=== PATIENT | male | born 1950 | race African-American/Black ===

== ENCOUNTER 2020-05-18 12:46 | Inpatient (IN) | payer OTHER ==
[2020-05-18] MEDS ORDERED: DEXAMETHASONE SOD PHOSPHATE 4 MG/1 ML VIAL IVPUSH ONE (16:19)
[2020-05-18 16:20] LABS: BASO % 0.4 % (0-2.0); EOS % 0.1 % (0-4.5); HEMATOCRIT 35.2 % (35.4-49); LYMPH % 16.7 % (8-40); MCH 33.4 pg (25.7-33.7); MEAN CELL VOLUME 98.3 fl (80-96); MEAN PLT VOLUME 8.6 fl (7.5-11.1); MONO % 3.7 % (3.8-10.2); NEUT % 79.1 % (42.8-82.8); PLATELET COUNT 305 K/MM3 (134-434); RBC 3.58 M/mm3 (4.00-5.60); RDW 12.6 % (11.9-15.9); WHITE BLOOD COUNT 8.6 K/mm3 (4.0-10.0)
[2020-05-18] MEDS ORDERED: DEXAMETHASONE SOD PHOSPHATE 10 MG/1 ML VIAL ONE (16:26)
[2020-05-18 16:35] LABS: INR 1.08 (0.83-1.09)
[2020-05-18 16:37] LABS: ACTIVATED PTT 33.7 SECONDS (25.2-36.5)
[2020-05-18 16:47] LABS: CHLORIDE 102 mmol/L (98-107); POTASSIUM 3.8 mmol/L (3.5-5.1); SODIUM 137 mmol/L (136-145)
[2020-05-18 16:49] LABS: CALCIUM 8.5 mg/dL (8.5-10.1)
[2020-05-18 16:50] LABS: ANION GAP 12 MMOL/L (8-16); BLOOD UREA NITROGEN 18.1 mg/dL (7-18); CO2 23 mmol/L (21-32); GLUCOSE,RANDOM 88 mg/dL (74-106)
[2020-05-18 16:52] LABS: BILIRUBIN,DIRECT 0.4 mg/dL (0.0-0.2)
[2020-05-18 16:54] LABS: CREATININE 1.3 mg/dL (0.55-1.3); LDH 481 U/L (87-246); SGOT/AST 42 U/L (15-37); SGPT/ALT 25 U/L (13-61); TOT PROT 7.4 g/dl (6.4-8.2)
[2020-05-18 16:56] LABS: BILIRUBIN,TOTAL 0.9 mg/dL (0.2-1)
[2020-05-18 16:58] LABS: ALK PHOS 64 U/L (45-117)
[2020-05-18 21:05] LABS: VENOUS BASE EXCESS -2.5 mmol/L (-2-2); VENOUS O2 SATURATION 86.6 % (70-80); VENOUS PCO2 36.7 mmHg (38-52); VENOUS PH 7.394 (7.310-7.410)
[2020-05-18] MEDS ORDERED: CEFTRIAXONE 1,000 MG in DEXTROSE 5%-WATER - 50 ML IVPB ONE (22:19)
[2020-05-18] MEDS ORDERED: CEFTRIAXONE 1 GM/50 ML BAG ONE (22:26)
[2020-05-18] MEDS: INSULIN SLIDING SCALE (NOVOLOG) 1 VIAL SQ SCH (22:38)
[2020-05-18] MEDS ORDERED: CEFTRIAXONE 1 GM in DEXTROSE 5%-WATER - 50 ML IVPB ONE (22:40)
[2020-05-18] MEDS ORDERED: AZITHROMYCIN IVPB 500 MG/250 ML BAG IVPB ONE ×2 (23:02→23:24)
[2020-05-19] MEDS: INSULIN SLIDING SCALE (NOVOLOG) 1 VIAL SQ SCH ×4 (06:45→22:02)
[2020-05-19] MEDS ORDERED: PT OWN MED DRAWER 7, Y5N ONE (09:11)
[2020-05-19] MEDS ORDERED: DEXTROSE 5%-WATER - 50 ML IVPB ONE (09:11)
[2020-05-19] MEDS ORDERED: cefTRIAXone SODIUM 1 GM VIAL ONE (09:11)
[2020-05-19] MEDS: ENOXAPARIN NA (PORCINE) 40 MG/0.4 ML DISP.SYRIN SQ SCH (09:35)
[2020-05-19] MEDS: ASCORBIC ACID 500 MG TABLET (FP) PO SCH ×2 (09:35→21:52)
[2020-05-19] MEDS: ZINC SULFATE 220 MG CAPSULE (FP) PO SCH (09:35)
[2020-05-19] MEDS: FUROSEMIDE 20 MG TABLET (FP) PO SCH (09:35)
[2020-05-19] MEDS: LISINOPRIL 20 MG TABLET PO SCH (09:35)
[2020-05-19] MEDS: amLODIPine BESYLATE 5 MG TABLET (FP) PO SCH (09:36)
[2020-05-19] MEDS: ASPIRIN COATED 81 MG TABLET.EC PO SCH (09:36)
[2020-05-19] MEDS: CHOLECALCIFEROL (VIT D3) 1,000 UNIT (25 MCG) TABLET PO SCH (09:36)
[2020-05-19] MEDS: CEFTRIAXONE 1 GM in DEXTROSE 5%-WATER - 50 ML IVPB SCH (09:36)
[2020-05-19 09:40] LABS: HEMOGLOBIN 12.2 GM/dL (11.7-16.9); MCH 33.1 pg (25.7-33.7); MEAN CELL VOLUME 97.4 fl (80-96); MEAN PLT VOLUME 8.4 fl (7.5-11.1); PLATELET COUNT 367 K/MM3 (134-434); RBC 3.69 M/mm3 (4.00-5.60); RDW 12.5 % (11.9-15.9); WHITE BLOOD COUNT 5.7 K/mm3 (4.0-10.0)
[2020-05-19 10:02] LABS: CHOLESTEROL 216 mg/dL (50-200); LDL CHOLESTEROL (ONLY SJRH) 139 mg/dL (5-100); TRIGLYCERIDES 149 mg/dL (0-150)
[2020-05-19 10:04] LABS: HDL CHOLESTEROL 45 mg/dL (40-60)
[2020-05-19 10:12] LABS: POTASSIUM 4.2 mmol/L (3.5-5.1)
[2020-05-19 10:14] LABS: ALBUMIN 2.9 g/dl (3.4-5.0); CALCIUM 9.3 mg/dL (8.5-10.1)
[2020-05-19 10:15] LABS: BLOOD UREA NITROGEN 17.3 mg/dL (7-18); MAGNESIUM 2.8 mg/dL (1.8-2.4)
[2020-05-19 10:17] LABS: CREATININE 1.1 mg/dL (0.55-1.3)
[2020-05-19 10:18] LABS: PHOSPHOROUS 3.4 mg/dL (2.5-4.9)
[2020-05-19] MEDS: FAMOTIDINE 10 MG TABLET PO SCH ×2 (10:18→21:52)
[2020-05-19 10:19] LABS: BILIRUBIN,TOTAL 0.7 mg/dL (0.2-1); TOT PROT 7.4 g/dl (6.4-8.2)
[2020-05-19] MEDS: AZITHROMYCIN IVPB 250 MG in DEXTROSE 5%-WATER - 250 ML IVPB SCH (11:06)
[2020-05-20] MEDS: INSULIN SLIDING SCALE (NOVOLOG) 1 VIAL SQ SCH ×4 (06:31→21:49)
[2020-05-20] MEDS ORDERED: cefTRIAXone SODIUM 1 GM VIAL ONE (09:28)
[2020-05-20] MEDS ORDERED: DEXTROSE 5%-WATER - 50 ML IVPB ONE (09:28)
[2020-05-20] MEDS: ASCORBIC ACID 500 MG TABLET (FP) PO SCH ×2 (09:29→21:44)
[2020-05-20] MEDS: CHOLECALCIFEROL (VIT D3) 1,000 UNIT (25 MCG) TABLET PO SCH (09:29)
[2020-05-20] MEDS: amLODIPine BESYLATE 5 MG TABLET (FP) PO SCH (09:29)
[2020-05-20] MEDS: FAMOTIDINE 10 MG TABLET PO SCH ×2 (09:29→21:49)
[2020-05-20] MEDS: ASPIRIN COATED 81 MG TABLET.EC PO SCH (09:29)
[2020-05-20] MEDS: ENOXAPARIN NA (PORCINE) 40 MG/0.4 ML DISP.SYRIN SQ SCH (09:29)
[2020-05-20] MEDS: LISINOPRIL 20 MG TABLET PO SCH (09:29)
[2020-05-20] MEDS: CEFTRIAXONE 1 GM in DEXTROSE 5%-WATER - 50 ML IVPB SCH (09:29)
[2020-05-20] MEDS: FUROSEMIDE 20 MG TABLET (FP) PO SCH (09:29)
[2020-05-20] MEDS: ZINC SULFATE 220 MG CAPSULE (FP) PO SCH (09:29)
[2020-05-20 10:24] LABS: BASO % 0.4 % (0-2.0); EOS % 0.2 % (0-4.5); HEMATOCRIT 34.2 % (35.4-49); HEMOGLOBIN 11.5 GM/dL (11.7-16.9); LYMPH % 15.2 % (8-40); MCH 33.3 pg (25.7-33.7); MCHC 33.7 g/dl (32.0-35.9); MEAN CELL VOLUME 98.8 fl (80-96); MEAN PLT VOLUME 8.3 fl (7.5-11.1); MONO % 2.8 % (3.8-10.2); NEUT % 81.4 % (42.8-82.8); PLATELET COUNT 464 K/MM3 (134-434); RBC 3.46 M/mm3 (4.00-5.60); RDW 12.1 % (11.9-15.9)
[2020-05-20 10:47] LABS: POTASSIUM 3.9 mmol/L (3.5-5.1)
[2020-05-20 10:56] LABS: CALCIUM 8.8 mg/dL (8.5-10.1)
[2020-05-20 10:57] LABS: ALBUMIN 2.8 g/dl (3.4-5.0); BLOOD UREA NITROGEN 22.7 mg/dL (7-18); MAGNESIUM 2.4 mg/dL (1.8-2.4)
[2020-05-20 10:58] LABS: CREATININE 1.1 mg/dL (0.55-1.3)
[2020-05-20 10:59] LABS: BILIRUBIN,TOTAL 0.7 mg/dL (0.2-1)
[2020-05-20 11:00] LABS: TOT PROT 6.9 g/dl (6.4-8.2)
[2020-05-20] MEDS: AZITHROMYCIN IVPB 250 MG in DEXTROSE 5%-WATER - 250 ML IVPB SCH (11:14)
[2020-05-20 13:20] LABS: PH,URINE 5.5 (5.0-8.0); URINE APPEARANCE CLEAR; URINE BILIRUBIN NEGATIVE (NEGATIVE); URINE COLOR YELLOW; URINE GLUCOSE (UA) NEGATIVE (NEGATIVE); URINE KETONE NEGATIVE (NEGATIVE); URINE LEUK ESTERASE NEGATIVE (NEGATIVE); URINE NITRITE NEGATIVE (NEGATIVE); URINE PROTEIN TRACE (NEGATIVE); URINE UROBILINOGEN 0.2 mg/dL (0.2-1.0)
[2020-05-20 15:33] VITALS: BMI 27.7
[2020-05-20] MEDS ORDERED: ACETAMINOPHEN 325 MG TABLET (FP) PO ONE (21:10)
[2020-05-21] MEDS: INSULIN SLIDING SCALE (NOVOLOG) 1 VIAL SQ SCH ×4 (06:12→21:04)
[2020-05-21] MEDS: ASPIRIN COATED 81 MG TABLET.EC PO SCH (09:53)
[2020-05-21] MEDS: CHOLECALCIFEROL (VIT D3) 1,000 UNIT (25 MCG) TABLET PO SCH (09:53)
[2020-05-21] MEDS: FUROSEMIDE 20 MG TABLET (FP) PO SCH (09:53)
[2020-05-21] MEDS: amLODIPine BESYLATE 5 MG TABLET (FP) PO SCH (09:53)
[2020-05-21] MEDS: FAMOTIDINE 10 MG TABLET PO SCH ×2 (09:54→21:04)
[2020-05-21] MEDS: ENOXAPARIN NA (PORCINE) 40 MG/0.4 ML DISP.SYRIN SQ SCH (09:54)
[2020-05-21] MEDS: LISINOPRIL 20 MG TABLET PO SCH (09:54)
[2020-05-21] MEDS: ZINC SULFATE 220 MG CAPSULE (FP) PO SCH (09:54)
[2020-05-21] MEDS: ASCORBIC ACID 500 MG TABLET (FP) PO SCH ×2 (09:55→21:04)
[2020-05-21 09:58] LABS: BASO % 0.5 % (0-2.0); HEMATOCRIT 34.5 % (35.4-49); HEMOGLOBIN 11.9 GM/dL (11.7-16.9); LYMPH % 15.5 % (8-40); MCH 33.8 pg (25.7-33.7); MCHC 34.3 g/dl (32.0-35.9); MEAN CELL VOLUME 98.4 fl (80-96); MEAN PLT VOLUME 7.8 fl (7.5-11.1); MONO % 5.5 % (3.8-10.2); NEUT % 77.5 % (42.8-82.8); PLATELET COUNT 481 K/MM3 (134-434); RBC 3.51 M/mm3 (4.00-5.60); RDW 12.4 % (11.9-15.9); WHITE BLOOD COUNT 8.7 K/mm3 (4.0-10.0)
[2020-05-21 10:21] LABS: POTASSIUM 4.2 mmol/L (3.5-5.1)
[2020-05-21 10:24] LABS: CALCIUM 8.6 mg/dL (8.5-10.1)
[2020-05-21 10:25] LABS: BLOOD UREA NITROGEN 16.3 mg/dL (7-18); MAGNESIUM 2.3 mg/dL (1.8-2.4)
[2020-05-21 10:26] LABS: ALBUMIN 2.7 g/dl (3.4-5.0)
[2020-05-21 10:30] LABS: BILIRUBIN,TOTAL 1.4 mg/dL (0.2-1); TOT PROT 6.6 g/dl (6.4-8.2)
[2020-05-21] MEDS ORDERED: DEXTROSE 5%-WATER - 50 ML IVPB ONE (10:58)
[2020-05-21] MEDS ORDERED: cefTRIAXone SODIUM 1 GM VIAL ONE (10:58)
[2020-05-21] MEDS: CEFTRIAXONE 1 GM in DEXTROSE 5%-WATER - 50 ML IVPB SCH (11:33)
[2020-05-21] MEDS: AZITHROMYCIN IVPB 250 MG in DEXTROSE 5%-WATER - 250 ML IVPB SCH (11:33)
[2020-05-21] MEDS ORDERED: REMDESIVIR 200 MG in SODIUM CHLORIDE 210 ML IVPB ONE (12:00)
[2020-05-21] MEDS: ACETAMINOPHEN 325 MG TABLET (FP) PO PRN ×2 (14:50→17:00)
[2020-05-21] MEDS: DEXAMETHASONE SOD PHOSPHATE 4 MG/1 ML VIAL IVPUSH SCH (14:50)
[2020-05-21] MEDS: ENOXAPARIN NA (PORCINE) 80 MG/0.8 ML DISP.SYRIN SQ SCH (21:04)
[2020-05-22] MEDS: INSULIN SLIDING SCALE (NOVOLOG) 1 VIAL SQ SCH ×4 (06:17→21:21)
[2020-05-22 09:15] LABS: HEMATOCRIT 35.5 % (35.4-49); HEMOGLOBIN 12.3 GM/dL (11.7-16.9); MCH 33.7 pg (25.7-33.7); MCHC 34.6 g/dl (32.0-35.9); MEAN CELL VOLUME 97.5 fl (80-96); MEAN PLT VOLUME 8.1 fl (7.5-11.1); PLATELET COUNT 582 K/MM3 (134-434); RBC 3.64 M/mm3 (4.00-5.60); RDW 12.3 % (11.9-15.9); WHITE BLOOD COUNT 11.1 K/mm3 (4.0-10.0)
[2020-05-22 09:32] LABS: ALBUMIN 2.9 g/dl (3.4-5.0); BLOOD UREA NITROGEN 26.9 mg/dL (7-18); CALCIUM 9.4 mg/dL (8.5-10.1)
[2020-05-22 09:33] LABS: MAGNESIUM 2.8 mg/dL (1.8-2.4)
[2020-05-22 09:34] LABS: BILIRUBIN,DIRECT 0.2 mg/dL (0.0-0.2)
[2020-05-22] MEDS ORDERED: DEXTROSE 5%-WATER - 50 ML IVPB ONE (09:34)
[2020-05-22] MEDS ORDERED: cefTRIAXone SODIUM 1 GM VIAL ONE (09:34)
[2020-05-22 09:35] LABS: CREATININE 1.2 mg/dL (0.55-1.3); PHOSPHOROUS 3.8 mg/dL (2.5-4.9)
[2020-05-22 09:36] LABS: BILIRUBIN,TOTAL 0.7 mg/dL (0.2-1); TOT PROT 7.6 g/dl (6.4-8.2)
[2020-05-22] MEDS ORDERED: SODIUM CHLORIDE NASAL SPRAY 44 ML BOTTLE NS PRN (09:44)
[2020-05-22] MEDS: CEFTRIAXONE 1 GM in DEXTROSE 5%-WATER - 50 ML IVPB SCH (10:18)
[2020-05-22] MEDS: AZITHROMYCIN IVPB 250 MG in DEXTROSE 5%-WATER - 250 ML IVPB SCH (10:18)
[2020-05-22] MEDS: ENOXAPARIN NA (PORCINE) 80 MG/0.8 ML DISP.SYRIN SQ SCH ×2 (10:19→21:15)
[2020-05-22] MEDS: LISINOPRIL 20 MG TABLET PO SCH (10:20)
[2020-05-22] MEDS: CHOLECALCIFEROL (VIT D3) 1,000 UNIT (25 MCG) TABLET PO SCH (10:20)
[2020-05-22] MEDS: ASPIRIN COATED 81 MG TABLET.EC PO SCH (10:20)
[2020-05-22] MEDS: ZINC SULFATE 220 MG CAPSULE (FP) PO SCH (10:21)
[2020-05-22] MEDS: FAMOTIDINE 10 MG TABLET PO SCH ×2 (10:21→21:15)
[2020-05-22] MEDS: ALLOPURINOL 300 MG TABLET (FP) PO SCH (10:21)
[2020-05-22] MEDS: FUROSEMIDE 20 MG TABLET (FP) PO SCH (10:21)
[2020-05-22] MEDS: DEXAMETHASONE SOD PHOSPHATE 4 MG/1 ML VIAL IVPUSH SCH (10:21)
[2020-05-22] MEDS: ASCORBIC ACID 500 MG TABLET (FP) PO SCH ×2 (10:21→21:15)
[2020-05-22] MEDS: amLODIPine BESYLATE 5 MG TABLET (FP) PO SCH (10:22)
[2020-05-22 11:11] LABS: ERYTHROCYTE SEDIMENTATION RATE 98 mm/hr (0-20)
[2020-05-22] MEDS: REMDESIVIR 100 MG in SODIUM CHLORIDE 230 ML IVPB SCH (14:49)
[2020-05-23] MEDS: INSULIN SLIDING SCALE (NOVOLOG) 1 VIAL SQ SCH ×3 (06:18→18:41)
[2020-05-23 07:14] VITALS: PULSE 67; TEMP 98.2
[2020-05-23 08:50] LABS: HEMATOCRIT 31.8 % (35.4-49); HEMOGLOBIN 10.7 GM/dL (11.7-16.9); MCH 33.3 pg (25.7-33.7); MCHC 33.7 g/dl (32.0-35.9); MEAN CELL VOLUME 98.6 fl (80-96); MEAN PLT VOLUME 8.5 fl (7.5-11.1); PLATELET COUNT 602 K/MM3 (134-434); RBC 3.23 M/mm3 (4.00-5.60); RDW 12.3 % (11.9-15.9); WHITE BLOOD COUNT 12.1 K/mm3 (4.0-10.0)
[2020-05-23 09:07] LABS: POTASSIUM 4.6 mmol/L (3.5-5.1)
[2020-05-23 09:09] LABS: BLOOD UREA NITROGEN 27.2 mg/dL (7-18)
[2020-05-23 09:10] LABS: ALBUMIN 2.6 g/dl (3.4-5.0); MAGNESIUM 2.4 mg/dL (1.8-2.4)
[2020-05-23 09:13] LABS: PHOSPHOROUS 3.5 mg/dL (2.5-4.9)
[2020-05-23 09:14] LABS: BILIRUBIN,TOTAL 0.4 mg/dL (0.2-1); TOT PROT 6.8 g/dl (6.4-8.2)
[2020-05-23 09:48] LABS: ERYTHROCYTE SEDIMENTATION RATE 104 mm/hr (0-20)
[2020-05-23] MEDS ORDERED: cefTRIAXone SODIUM 1 GM VIAL ONE (11:12)
[2020-05-23] MEDS ORDERED: DEXTROSE 5%-WATER - 50 ML IVPB ONE (11:12)
[2020-05-23] MEDS: FUROSEMIDE 20 MG TABLET (FP) PO SCH (11:19)
[2020-05-23] MEDS: ASPIRIN COATED 81 MG TABLET.EC PO SCH (11:19)
[2020-05-23] MEDS: CHOLECALCIFEROL (VIT D3) 1,000 UNIT (25 MCG) TABLET PO SCH (11:19)
[2020-05-23] MEDS: ASCORBIC ACID 500 MG TABLET (FP) PO SCH (11:19)
[2020-05-23] MEDS: amLODIPine BESYLATE 5 MG TABLET (FP) PO SCH (11:19)
[2020-05-23] MEDS: LISINOPRIL 20 MG TABLET PO SCH (11:19)
[2020-05-23] MEDS: ALLOPURINOL 300 MG TABLET (FP) PO SCH (11:19)
[2020-05-23] MEDS: ZINC SULFATE 220 MG CAPSULE (FP) PO SCH (11:20)
[2020-05-23] MEDS: ENOXAPARIN NA (PORCINE) 80 MG/0.8 ML DISP.SYRIN SQ SCH (11:20)
[2020-05-23] MEDS: DEXAMETHASONE SOD PHOSPHATE 4 MG/1 ML VIAL IVPUSH SCH (11:20)
[2020-05-23] MEDS: FAMOTIDINE 10 MG TABLET PO SCH (11:20)
[2020-05-23] MEDS: CEFTRIAXONE 1 GM in DEXTROSE 5%-WATER - 50 ML IVPB SCH (11:21)
[2020-05-23] MEDS: REMDESIVIR 100 MG in SODIUM CHLORIDE 230 ML IVPB SCH (12:19)
[2020-05-23 15:59] VITALS: BP 125/72
== END 2020-05-23 20:42 | disposition home or self-care (01) | DRG 177 ==
LOC: JER 12:46 → JERBED 16:09 → J8W 05-19 03:16
PROVIDERS: ADMIT Internal Medicine; ATTEND Internal Medicine
PROC: XW033E5 Introduction of Remdesivir Anti-infective into Peripheral Vein, Percutaneous Approach, New Technology Group 5 (ICD-10-PCS; principal; 2020-05-21)
PROC: XW13325 Transfusion of Convalescent Plasma (Nonautologous) into Peripheral Vein, Percutaneous Approach, New Technology Group 5 (ICD-10-PCS; 2020-05-21)
DX: U07.1 COVID-19 (principal); J96.01 Acute respiratory failure with hypoxia; J12.82 Pneumonia due to coronavirus disease 2019; I10 Essential (primary) hypertension; E11.9 Type 2 diabetes mellitus without complications; Z79.84 Long term (current) use of oral hypoglycemic drugs; R94.31 Abnormal electrocardiogram [ECG] [EKG]; E80.6 Other disorders of bilirubin metabolism
CPT/HCPCS: 36415; 36430; 71045-TC-FY; 80053; 80061; 81003; 82248; 82550; 82728; 82803; 82962; 83036; 83605; 83615; 83721; 83735; 84100; 84484; 85025; 85027; 85379; 85610; 85651; 85730; 86140; 86850; 86900; 86901; 87040; 87426; 87804; 87899; 93005; 93010; 94761; 97116-GP; 97161-GP; 99285-25; C9399; P9017